=== PATIENT | female | born 1990 | race Caucasian/White ===

== ENCOUNTER 2016-12-28 15:49 | Emergency (ER) | payer MEDICAID ==
[~2016-12-28] VITALS: Ht 160 cm; Wt 49.1 kg
[2016-12-28 15:54] VITALS: TEMP 98.8
[2016-12-28] MEDS ORDERED: COREG 25MG25 MG/TAB PO (15:58)
[2016-12-28 16:50] LABS: PH 6 (5-8); URINE APPEARANCE Hazy; URINE BACTERIA Rare /hpf; URINE BILIRUBIN Negative (NEGATIVE); URINE BLOOD 3+ (NEGATIVE); URINE COLOR Yellow; URINE GLUCOSE Negative (NEGATIVE); URINE KETONE Negative (NEGATIVE); URINE RBC >50 /hpf; URINE UROBILINOGEN Negative (NEGATIVE)
[2016-12-28 16:51] LABS: URINE WBC >50 /hpf
[2016-12-28] MEDS ORDERED: BACTRIM DS 8001 TAB PO (17:04)
[2016-12-28 17:10] VITALS: BP 136/90; PULSE 87
[2016-12-28 18:18] LABS: CHLAMYDIA/TRACH by PCR Female DETECTED; NEISSERIA GON by PCR Female DETECTED
== END 2016-12-28 17:13 | disposition home or self-care (01) ==
LOC: COL.ER 15:49
PROVIDERS: Emergency Medicine
DX: N39.0 Urinary tract infection, site not specified (principal); N76.0 Acute vaginitis; I10 Essential (primary) hypertension; F17.210 Nicotine dependence, cigarettes, uncomplicated
CPT/HCPCS: J0696